=== PATIENT | female | born 1955 | race African-American/Black ===

== ENCOUNTER 2017-03-01 09:07 | Inpatient (IN) | payer MEDICARE, MEDICAID, OTHER ==
[2017-03-01] MEDS: CEFTRIAXONE 1 GM/50 ML (PMX) 50 ML IVPB (09:48)
[2017-03-01] MEDS: SODIUM CHLORIDE 0.9% 1L BAG IV* (09:49)
[2017-03-01] MEDS: IPRATROPIUM (NEB) 0.5 MG/2.5 ML AMP NEB (09:53)
[2017-03-01] MEDS: ALBUTEROL 0.5% (NEB) 2.5 MG/0.5 ML AMP NEB (09:53)
[2017-03-01] MEDS: AZITHROMYCIN 500MG/NS (PMX) 250 ML IV (10:04)
[2017-03-01 10:21] LABS: ABNORMAL IP MESSAGE 1; HEMATOCRIT 29.2 % (37.0-47.0); HEMOGLOBIN 8.4 g/dl (12.0-16.0); MEAN CORPUSCULAR HEMOGLOBIN 24.1 pg (29.0-33.0); MEAN CORPUSCULAR HGB CONC 28.8 g/dl (32.0-37.0); MEAN CORPUSCULAR VOLUME 83.9 fl (82.0-101.0); MEAN PLATELET VOLUME 11.5 fl (7.4-10.4); PLATELET COUNT 235 10^3/UL (140-415); RED BLOOD COUNT 3.48 10^6/ul (4.20-5.40); RED CELL DISTRIBUTION WIDTH 21.4 % (11.5-14.5)
[2017-03-01 10:21] LABS: WHITE BLOOD COUNT 13.4 10^3/ul (4.8-10.8)
[2017-03-01 10:29] LABS: ADD MAN DIFF? YES; POSITIVE DIFF @See below
[2017-03-01 10:34] LABS: INR 1.23; PROTIME 15.7 Sec (11.9-14.9); PT RATIO 1.2
[2017-03-01 10:36] LABS: PARTIAL THROMBOPLASTIN TIME 64.6 Sec (25.0-35.0)
[2017-03-01 10:50] LABS: ALANINE AMINOTRANSFERASE 30 IU/L (13-69); ALBUMIN 3.4 g/dl (3.3-4.9); ALBUMIN/GLOBULIN RATIO 1.17; ALKALINE PHOSPHATASE 65 IU/L (42-121); ANION GAP 19 (8-16); ASPARTATE AMINO TRANSFERASE 24 IU/L (15-46); BILIRUBIN,INDIRECT 0.6 mg/dl (0-1.1); BILIRUBIN,TOTAL 0.6 mg/dl (0.2-1.3); BLOOD UREA NITROGEN 22 mg/dl (7-20); CALCIUM 9.2 mg/dl (8.4-10.2); CARBON DIOXIDE 21 mmol/L (21-31); CHLORIDE 108 mmol/L (97-110); GLUCOSE 340 mg/dl (70-220); POTASSIUM 4.3 mmol/L (3.5-5.1); SODIUM 144 mmol/L (135-144); TOTAL PROTEIN 6.3 g/dl (6.1-8.1)
[2017-03-01 10:59] LABS: TROPONIN-I < 0.012 ng/ml (0.00-0.12)
[2017-03-01 11:08] LABS: LACTIC ACID 3.8 mmol/L (0.5-2.0)
[2017-03-01 11:22] LABS: BAND NEUTROPHILS #M 1.7 10^3/ul (0.0-0.6); BAND NEUTROPHILS % (M) 13 % (0-4); LYMPHOCYTES # 0.5 10^3/ul (0.8-2.9); LYMPHOCYTES #M 0.5 10^3/ul (0.8-2.9); LYMPHOCYTES % (M) 4 % (15-51); MONOCYTE # 0.5 10^3/ul (0.3-0.9); MONOCYTE #M 0.5 10^3/ul (0.3-0.9); MONOCYTES % (M) 4 % (0-11); SEG NEUT #M 10.8 10^3/ul (1.7-7.5); SEGMENTED NEUTROPHILS (M) % 79 % (39-77)
[2017-03-01] MEDS ORDERED: ONDANSETRON 4 MG INJ IV (12:00)
[2017-03-01] MEDS ORDERED: ACETAMINOPHEN 325 MG TAB PO ×2 (12:00→14:00)
[2017-03-01 12:43] LABS: LACTIC ACID 2.1 mmol/L (0.5-2.0)
[2017-03-01] MEDS ORDERED: NACL 0.9% 3 ML SYG IV (14:00)
[2017-03-01] MEDS ORDERED: VANCOMYCIN IV PER PHARMACY XX (14:00)
[2017-03-01] MEDS ORDERED: ALBUTEROL/IPRATROPIUM (NEB) 3 ML AMP HHN (14:00)
[2017-03-01] MEDS ORDERED: ACETAMINOPHEN 650 MG SUPP PR (14:00)
[2017-03-01] MEDS: NPH, HUMAN INSULIN ISOPHANE 3ML VIAL SC ×2 (14:30→22:33)
[2017-03-01] MEDS: SOD CHLORIDE 0.9% 1,000 ML IV ×2 (14:40→14:50)
[2017-03-01] MEDS ORDERED: GLUCOSE GEL 15 GRAM TUBE PO ×2 (15:00)
[2017-03-01] MEDS ORDERED: DEXTROSE 50% 50 ML SYRINGE IV ×2 (15:00)
[2017-03-01] MEDS ORDERED: GLUCAGON 1 MG INJ IM (15:00)
[2017-03-01] MEDS ORDERED: GLUCOSE GEL 15 GRAM TUBE BUCCAL (15:00)
[2017-03-01 15:54] LABS: AADO2 Arterial 598.6 mmHg (7.0-24.0); Allen Test ACCEPTAB; Arterial Blood Gas Oxygen Sat 95.9 mmHG (95.0-98.0); Arterial COHb 0.5 % (0.0-3.0); Arterial Fraction of Oxyhgb 95.1 % (93.0-99.0); Arterial MetHb 0.3 % (0.0-1.5); Arterial Total Hemglobin 8.9 g/dl (12.0-18.0); Arterial pCO2 34.1 mmhg (35-45); MODE MASK - NRB; Site Right Radial
[2017-03-01 16:00] LABS: ADD UMIC YES; UR ASCORBIC ACID 20 mg/dL (NEGATIVE); UR BILIRUBIN (Dip) NEGATIVE (NEGATIVE); UR BLOOD (Dip) NEGATIVE (NEGATIVE); UR CLARITY SLIGHTLY CLOUDY (CLEAR); UR COLOR YELLOW (YELLOW); UR GLUCOSE (Dip) 3+ mg/dL (NEGATIVE); UR KETONES (Dip) NEGATIVE (NEGATIVE); UR LEUKOCYTE ESTERASE (Dip) 1+ Leu/ul (NEGATIVE); UR NITRITE (Dip) POSITIVE (NEGATIVE); UR RBC 0 /HPF (0-5); UR SPECIFIC GRAVITY (Dip) 1.013 (1.003-1.030); UR TOTAL PROTEIN (Dip) NEGATIVE (NEGATIVE); UR UROBILINOGEN (Dip) NEGATIVE (NEGATIVE); UR WBC 56 /HPF (0-5)
[2017-03-01] MEDS: METHYLPREDNISOLONE 125 MG INJ IV (16:08)
[2017-03-01] MEDS: CEFEPIME 2GM/50 ML (PMX) 50 ML IVPB ×2 (16:08→22:50)
[2017-03-01] MEDS: VANCOMYCIN 1.25 GM in SODIUM CHLORIDE 0.45 % 250 ML IVPB (16:53)
[2017-03-01] MEDS ORDERED: INSULIN ASPART [NOVOLOG] 3 ML PEN SC (17:00)
[2017-03-01] MEDS: INSULIN ASPART [NOVOLOG] 3 ML PEN SC ×2 (17:00→21:21)
[2017-03-01] MEDS: INSULIN GLARGINE [LANtus] 3 ML PEN SC (17:31)
[2017-03-01 20:00] LABS: LACTIC ACID 1.5 mmol/L (0.5-2.0)
[2017-03-01] MEDS: ALBUTEROL/IPRATROPIUM (NEB) 3 ML AMP HHN (20:41)
[2017-03-01] MEDS: FAMOTIDINE 20 MG INJ IV (21:16)
[2017-03-01] MEDS: METHYLPREDNISOLONE 40 MG INJ IV (21:16)
[2017-03-01] MEDS: ATORVASTATIN 40 MG TAB PO (21:16)
[2017-03-01] MEDS: HEPARIN 5,000 UNIT/0.5 ML VIAL SC (21:21)
[2017-03-01] MEDS: ZIPRASIDONE 20 MG CAP PO (22:27)
[2017-03-02] MEDS: ALBUTEROL/IPRATROPIUM (NEB) 3 ML AMP HHN ×6 (00:18→20:18)
[2017-03-02] MEDS: INSULIN ASPART [NOVOLOG] 3 ML PEN SC ×6 (01:26→20:38)
[2017-03-02] MEDS: ACCU-CHEK XX (01:27)
[2017-03-02] MEDS: METHYLPREDNISOLONE 40 MG INJ IV ×2 (05:47→20:32)
[2017-03-02] MEDS: CEFEPIME 2GM/50 ML (PMX) 50 ML IVPB ×2 (05:48→20:33)
[2017-03-02] MEDS: NPH, HUMAN INSULIN ISOPHANE 3ML VIAL SC ×3 (05:51→21:59)
[2017-03-02] MEDS ORDERED: PENDING SANTYL ORDER FOR WOUND CARE XX (07:00)
[2017-03-02 07:05] LABS: WHITE BLOOD COUNT 9.3 10^3/ul (4.8-10.8)
[2017-03-02 07:05] LABS: ABNORMAL IP MESSAGE 1; HEMOGLOBIN 7.7 g/dl (12.0-16.0); MEAN CORPUSCULAR HEMOGLOBIN 23.6 pg (29.0-33.0); MEAN CORPUSCULAR HGB CONC 28.5 g/dl (32.0-37.0); MEAN CORPUSCULAR VOLUME 82.8 fl (82.0-101.0); MEAN PLATELET VOLUME 11.7 fl (7.4-10.4); PLATELET COUNT 175 10^3/UL (140-415); RED BLOOD COUNT 3.26 10^6/ul (4.20-5.40); RED CELL DISTRIBUTION WIDTH 21.4 % (11.5-14.5)
[2017-03-02 07:09] LABS: ADD MAN DIFF? YES; POSITIVE DIFF @See below
[2017-03-02 07:33] LABS: LACTIC ACID 1.2 mmol/L (0.5-2.0)
[2017-03-02 07:48] LABS: ALANINE AMINOTRANSFERASE 30 IU/L (13-69); ALBUMIN 3.1 g/dl (3.3-4.9); ALKALINE PHOSPHATASE 69 IU/L (42-121); ANION GAP 15 (8-16); ASPARTATE AMINO TRANSFERASE 20 IU/L (15-46); BILIRUBIN,INDIRECT 0.2 mg/dl (0-1.1); BILIRUBIN,TOTAL 0.2 mg/dl (0.2-1.3); BLOOD UREA NITROGEN 17 mg/dl (7-20); CALCIUM 9.1 mg/dl (8.4-10.2); CARBON DIOXIDE 24 mmol/L (21-31); CHLORIDE 113 mmol/L (97-110); CREATININE 0.79 mg/dl (0.44-1.00); GLUCOSE 250 mg/dl (70-220); MAGNESIUM 2.1 mg/dl (1.7-2.5); PHOSPHORUS 2.6 mg/dl (2.5-4.9); POTASSIUM 4.1 mmol/L (3.5-5.1); SODIUM 148 mmol/L (135-144); TOTAL PROTEIN 6.2 g/dl (6.1-8.1)
[2017-03-02] MEDS: AMLODIPINE 5 MG TAB PO (08:43)
[2017-03-02] MEDS: FAMOTIDINE 20 MG INJ IV ×2 (08:43→20:31)
[2017-03-02] MEDS: ZIPRASIDONE 20 MG CAP PO ×2 (08:43→20:31)
[2017-03-02] MEDS: HEPARIN 5,000 UNIT/0.5 ML VIAL SC ×2 (08:47→20:38)
[2017-03-02 10:04] LABS: ANISOCYTOSIS 1+ (0-0); BAND NEUTROPHILS #M 2.6 10^3/ul (0.0-0.6); BAND NEUTROPHILS % (M) 29 % (0-4); BURR CELLS 1+ (0-0); HYPOCHROMASIA 1+ (0-0); LYMPHOCYTES #M 0.7 10^3/ul (0.8-2.9); LYMPHOCYTES % (M) 8 % (15-51); MONOCYTE #M 0.2 10^3/ul (0.3-0.9); MONOCYTES % (M) 3 % (0-11); OVALOCYTES 1+ (0-0); PLATELET ESTIMATE NORMAL; POIKILOCYTOSIS 1+ (0-0); SEG NEUT #M 5.8 10^3/ul (1.7-7.5); SEGMENTED NEUTROPHILS (M) % 60 % (39-77); SMUDGE%M 2 % (0-0)
[2017-03-02] MEDS: VANCOMYCIN 500MG/NS (PMX) 100 ML IVPB ×2 (12:27→23:42)
[2017-03-02] MEDS: FENTAnyl PATCH 75 MCG/HR TRANSDERM (12:29)
[2017-03-02 14:15] LABS: CHOL/HDL RATIO 3.8 RATIO; HDL CHOLESTEROL 31 mg/dl (35-98); LDL CHOLESTEROL,CALCULATED 64 mg/dl; TRIGLYCERIDES 113 mg/dl (0-149)
[2017-03-02 14:15] LABS: CHOLESTEROL 118 mg/dl (100-200)
[2017-03-02 14:51] LABS: THYROID STIMULATING HORMONE 0.053 MIU/L (0.465-4.680)
[2017-03-02] MEDS: ATORVASTATIN 40 MG TAB PO (20:31)
[2017-03-02] MEDS: INSULIN GLARGINE [LANtus] 3 ML PEN SC (20:37)
[2017-03-03] MEDS: ALBUTEROL/IPRATROPIUM (NEB) 3 ML AMP HHN ×6 (00:07→19:32)
[2017-03-03] MEDS: ACCU-CHEK XX ×17 (02:04→23:01)
[2017-03-03 06:06] LABS: WHITE BLOOD COUNT 7.8 10^3/ul (4.8-10.8)
[2017-03-03 06:06] LABS: ABNORMAL IP MESSAGE 1; HEMATOCRIT 26.8 % (37.0-47.0); HEMOGLOBIN 8.1 g/dl (12.0-16.0); MEAN CORPUSCULAR HEMOGLOBIN 24.3 pg (29.0-33.0); MEAN CORPUSCULAR HGB CONC 30.2 g/dl (32.0-37.0); MEAN CORPUSCULAR VOLUME 80.5 fl (82.0-101.0); MEAN PLATELET VOLUME 11.3 fl (7.4-10.4); PLATELET COUNT 266 10^3/UL (140-415); RED BLOOD COUNT 3.33 10^6/ul (4.20-5.40); RED CELL DISTRIBUTION WIDTH 21.2 % (11.5-14.5)
[2017-03-03 06:16] LABS: ADD MAN DIFF? YES; POSITIVE DIFF @See below
[2017-03-03] MEDS: METHYLPREDNISOLONE 40 MG INJ IV (06:40)
[2017-03-03] MEDS: NPH, HUMAN INSULIN ISOPHANE 3ML VIAL SC (06:40)
[2017-03-03 07:10] LABS: ANION GAP 16 (8-16); BLOOD UREA NITROGEN 23 mg/dl (7-20); CALCIUM 9.1 mg/dl (8.4-10.2); CARBON DIOXIDE 20 mmol/L (21-31); CHLORIDE 112 mmol/L (97-110); CREATININE 0.87 mg/dl (0.44-1.00); GLUCOSE 305 mg/dl (70-220); MAGNESIUM 2.2 mg/dl (1.7-2.5); POTASSIUM 3.9 mmol/L (3.5-5.1); SODIUM 144 mmol/L (135-144)
[2017-03-03] MEDS: ONDANSETRON 4 MG INJ IV (08:35)
[2017-03-03] MEDS ORDERED: DEXTROSE 50% 50 ML SYRINGE IV ×2 (09:00)
[2017-03-03] MEDS ORDERED: INSULIN HUMAN REGULAR 100 UNIT in SOD CHLORIDE 0.9% 99 ML IV (09:00)
[2017-03-03 09:37] LABS: ANISOCYTOSIS 1+ (0-0); BAND NEUTROPHILS #M 0.5 10^3/ul (0.0-0.6); BAND NEUTROPHILS % (M) 7 % (0-4); BURR CELLS 1+ (0-0); GIANT THROMBO% (M) 2 % (0-0); LYMPHOCYTES #M 0.7 10^3/ul (0.8-2.9); LYMPHOCYTES % (M) 10 % (15-51); OVALOCYTES 1+ (0-0); PLATELET ESTIMATE NORMAL; POIKILOCYTOSIS 3+ (0-0); POLYCHROMASIA 1+ (0-0); SEG NEUT #M 6.5 10^3/ul (1.7-7.5); SEGMENTED NEUTROPHILS (M) % 83 % (39-77)
[2017-03-03] MEDS: HYDROCODONE/APAP (5/325) TAB PO ×2 (09:46→19:49)
[2017-03-03] MEDS: CEFEPIME 2GM/50 ML (PMX) 50 ML IVPB ×2 (09:46→20:51)
[2017-03-03] MEDS: AMLODIPINE 5 MG TAB PO (09:46)
[2017-03-03] MEDS: ZIPRASIDONE 20 MG CAP PO ×2 (09:46→21:09)
[2017-03-03] MEDS: DOCUSATE SODIUM 100 MG CAP PO ×2 (09:47→20:52)
[2017-03-03] MEDS: POLYETHYLENE GLYCOL 17 GM PACKET PO ×2 (09:47→10:07)
[2017-03-03 09:49] LABS: AADO2 Arterial 409.7 mmHg (7.0-24.0); Allen Test ACCEPTAB; Arterial Blood Gas Oxygen Sat 87.4 mmHG (95.0-98.0); Arterial COHb 0.2 % (0.0-3.0); Arterial Fraction of Oxyhgb 87.1 % (93.0-99.0); Arterial MetHb 0.2 % (0.0-1.5); Arterial Total Hemglobin 9.5 g/dl (12.0-18.0); Arterial pCO2 27.6 mmhg (35-45); MODE MASK - SIMPLE; Site Left Radial
[2017-03-03] MEDS: FAMOTIDINE 20 MG INJ IV ×2 (09:57→20:51)
[2017-03-03] MEDS: HEPARIN 5,000 UNIT/0.5 ML VIAL SC ×2 (10:00→20:54)
[2017-03-03] MEDS: INSULIN HUMAN REGULAR 100 UNIT in SOD CHLORIDE 0.9% 99 ML IV (11:48)
[2017-03-03 13:02] LABS: VANCOMYCIN,TROUGH 6.7 ug/ml (10.0-20.0)
[2017-03-03] MEDS: VANCOMYCIN 500MG/NS (PMX) 100 ML IVPB ×2 (13:23→20:52)
[2017-03-03] MEDS: COLLAGENASE 30 GM TUBE TOP (16:05)
[2017-03-03] MEDS: ATORVASTATIN 40 MG TAB PO (20:52)
[2017-03-03] MEDS ORDERED: METHYLPREDNISOLONE 40 MG INJ IV (21:00)
[2017-03-04] MEDS: ACCU-CHEK XX ×8 (00:44→08:00)
[2017-03-04] MEDS: HYDROCODONE/APAP (5/325) TAB PO ×4 (01:29→20:51)
[2017-03-04] MEDS: ALBUTEROL/IPRATROPIUM (NEB) 3 ML AMP HHN ×6 (04:47→20:09)
[2017-03-04] MEDS: VANCOMYCIN 500MG/NS (PMX) 100 ML IVPB ×3 (04:54→21:35)
[2017-03-04 05:59] LABS: WHITE BLOOD COUNT 9.2 10^3/ul (4.8-10.8)
[2017-03-04 05:59] LABS: HEMATOCRIT 27.6 % (37.0-47.0); HEMOGLOBIN 8.3 g/dl (12.0-16.0); MEAN CORPUSCULAR HGB CONC 30.1 g/dl (32.0-37.0); MEAN CORPUSCULAR VOLUME 79.8 fl (82.0-101.0); MEAN PLATELET VOLUME 11.7 fl (7.4-10.4); PLATELET COUNT 273 10^3/UL (140-415); RED BLOOD COUNT 3.46 10^6/ul (4.20-5.40)
[2017-03-04 06:21] LABS: IRON 19 ug/dl (35-150)
[2017-03-04 06:25] LABS: ANION GAP 12 (8-16); BLOOD UREA NITROGEN 24 mg/dl (7-20); CALCIUM 9.4 mg/dl (8.4-10.2); CARBON DIOXIDE 22 mmol/L (21-31); CHLORIDE 112 mmol/L (97-110); CREATININE 0.87 mg/dl (0.44-1.00); GLUCOSE 106 mg/dl (70-220); POTASSIUM 3.7 mmol/L (3.5-5.1); SODIUM 142 mmol/L (135-144)
[2017-03-04 06:31] LABS: ADD MAN DIFF? YES; POSITIVE DIFF @See below
[2017-03-04 06:32] LABS: % IRON SATURATION 8 % SAT (22-52); TOTAL IRON BINDING CAPACITY 250 ug/dl (241-421)
[2017-03-04 06:59] LABS: FERRITIN 73.6 ng/ml (11.1-264.0)
[2017-03-04 08:32] LABS: AADO2 Arterial 269.3 mmHg (7.0-24.0); Allen Test ACCEPTAB; Arterial Base Excess -3.8 mmol/L (-3.0-3); Arterial Blood Gas Oxygen Sat 86.8 mmHG (95.0-98.0); Arterial COHb 0.2 % (0.0-3.0); Arterial Fraction of Oxyhgb 86.4 % (93.0-99.0); Arterial HCO3 19.5 mmol/L (22.0-26.0); Arterial MetHb 0.3 % (0.0-1.5); Arterial Total Hemglobin 8.8 g/dl (12.0-18.0); Arterial pCO2 28.7 mmhg (35-45); MODE HFNC; Site Left Radial
[2017-03-04] MEDS ORDERED: METHYLPREDNISOLONE 40 MG INJ IV (09:00)
[2017-03-04] MEDS ORDERED: ACCU-CHEK XX (09:00)
[2017-03-04] MEDS: ZIPRASIDONE 20 MG CAP PO ×2 (09:22→20:50)
[2017-03-04] MEDS: FAMOTIDINE 20 MG INJ IV ×2 (09:22→20:50)
[2017-03-04] MEDS: CEFEPIME 2GM/50 ML (PMX) 50 ML IVPB ×2 (09:22→20:52)
[2017-03-04] MEDS: AMLODIPINE 5 MG TAB PO (09:23)
[2017-03-04] MEDS: DOCUSATE SODIUM 100 MG CAP PO ×2 (09:23→20:51)
[2017-03-04] MEDS: predniSONE 20 MG TAB PO (09:23)
[2017-03-04] MEDS: COLLAGENASE 30 GM TUBE TOP (09:23)
[2017-03-04] MEDS ORDERED: GLUCOSE GEL 15 GRAM TUBE BUCCAL (09:30)
[2017-03-04] MEDS: INSULIN GLARGINE [LANtus] 3 ML PEN SC (09:30)
[2017-03-04] MEDS ORDERED: GLUCAGON 1 MG INJ IM (09:30)
[2017-03-04] MEDS ORDERED: GLUCOSE GEL 15 GRAM TUBE PO ×2 (09:30)
[2017-03-04] MEDS ORDERED: DEXTROSE 50% 50 ML SYRINGE IV ×2 (09:30)
[2017-03-04] MEDS: HEPARIN 5,000 UNIT/0.5 ML VIAL SC ×2 (09:39→20:54)
[2017-03-04 11:29] LABS: ANISOCYTOSIS 2+ (0-0); BAND NEUTROPHILS #M 0.4 10^3/ul (0.0-0.6); BAND NEUTROPHILS % (M) 5 % (0-4); HYPOCHROMASIA 3+ (0-0); LYMPHOCYTES #M 0.9 10^3/ul (0.8-2.9); LYMPHOCYTES % (M) 10 % (15-51); MICROCYTOSIS 1+ (0-0); MONOCYTE #M 0.5 10^3/ul (0.3-0.9); MONOCYTES % (M) 6 % (0-11); PLATELET ESTIMATE NORMAL; POIKILOCYTOSIS 2+ (0-0); POLYCHROMASIA 1+ (0-0); REACTIVE LYMPHOCYTES #M 0.1 10^3/ul (0.0-0.0); REACTIVE LYMPHOCYTES% (M) 2 % (0-0); SEG NEUT #M 7.1 10^3/ul (1.7-7.5); SEGMENTED NEUTROPHILS (M) % 77 % (39-77)
[2017-03-04] MEDS ORDERED: ROPINIROLE 0.25 MG TAB PO (11:30)
[2017-03-04] MEDS: INSULIN ASPART [NOVOLOG] 3 ML PEN SC ×5 (11:30→20:59)
[2017-03-04] MEDS: FERROUS FUMARATE (SR) TAB PO (12:19)
[2017-03-04] MEDS: ROPINIROLE 0.25 MG TAB PO ×2 (12:28→20:51)
[2017-03-04 20:35] LABS: VANCOMYCIN,TROUGH 11.2 ug/ml (10.0-20.0)
[2017-03-04] MEDS: ATORVASTATIN 40 MG TAB PO (20:51)
[2017-03-05] MEDS: ACCU-CHEK XX (02:40)
[2017-03-05] MEDS: VANCOMYCIN 750 MG in DEXTROSE 5% 150 ML IVPB ×3 (03:16→18:08)
[2017-03-05] MEDS: HYDROCODONE/APAP (5/325) TAB PO (03:31)
[2017-03-05] MEDS: ALBUTEROL/IPRATROPIUM (NEB) 3 ML AMP HHN ×6 (04:09→20:12)
[2017-03-05 05:35] LABS: WHITE BLOOD COUNT 7.5 10^3/ul (4.8-10.8)
[2017-03-05 05:35] LABS: HEMATOCRIT 28.9 % (37.0-47.0); HEMOGLOBIN 8.7 g/dl (12.0-16.0); MEAN CORPUSCULAR HEMOGLOBIN 24.2 pg (29.0-33.0); MEAN CORPUSCULAR HGB CONC 30.1 g/dl (32.0-37.0); MEAN CORPUSCULAR VOLUME 80.5 fl (82.0-101.0); MEAN PLATELET VOLUME 11.1 fl (7.4-10.4); NUCLEATED RED BLOOD CELLS% 0.3 /100WBC (0.0-0.0); PLATELET COUNT 304 10^3/UL (140-415); RED BLOOD COUNT 3.59 10^6/ul (4.20-5.40); RED CELL DISTRIBUTION WIDTH 20.3 % (11.5-14.5)
[2017-03-05 05:56] LABS: ADD MAN DIFF? YES; POSITIVE DIFF @See below
[2017-03-05 06:27] LABS: ANION GAP 12 (8-16); BLOOD UREA NITROGEN 14 mg/dl (7-20); CALCIUM 8.9 mg/dl (8.4-10.2); CARBON DIOXIDE 24 mmol/L (21-31); CHLORIDE 108 mmol/L (97-110); CREATININE 0.74 mg/dl (0.44-1.00); GLUCOSE 135 mg/dl (70-220); POTASSIUM 3.3 mmol/L (3.5-5.1); SODIUM 141 mmol/L (135-144)
[2017-03-05 08:27] LABS: AADO2 Arterial 367.9 mmHg (7.0-24.0); Allen Test ACCEPTAB; Arterial Base Excess -1.4 mmol/L (-3.0-3); Arterial Blood Gas Oxygen Sat 97.6 mmHG (95.0-98.0); Arterial COHb 0.4 % (0.0-3.0); Arterial HCO3 21.7 mmol/L (22.0-26.0); Arterial MetHb 0.2 % (0.0-1.5); Arterial Total Hemglobin 10.8 g/dl (12.0-18.0); Arterial pCO2 30.8 mmhg (35-45); MODE HFNC; Site Left Radial
[2017-03-05] MEDS: CEFEPIME 2GM/50 ML (PMX) 50 ML IVPB ×2 (08:29→21:19)
[2017-03-05] MEDS: DOCUSATE SODIUM 100 MG CAP PO ×2 (08:30→21:10)
[2017-03-05] MEDS: predniSONE 20 MG TAB PO (08:30)
[2017-03-05] MEDS: AMLODIPINE 5 MG TAB PO (08:30)
[2017-03-05] MEDS: ZIPRASIDONE 20 MG CAP PO ×2 (08:30→21:00)
[2017-03-05] MEDS: FAMOTIDINE 20 MG INJ IV ×2 (08:30→21:11)
[2017-03-05] MEDS: POLYETHYLENE GLYCOL 17 GM PACKET PO (08:30)
[2017-03-05] MEDS: FERROUS FUMARATE (SR) TAB PO (08:31)
[2017-03-05] MEDS: COLLAGENASE 30 GM TUBE TOP (08:31)
[2017-03-05] MEDS: INSULIN GLARGINE [LANtus] 3 ML PEN SC (08:34)
[2017-03-05] MEDS: HEPARIN 5,000 UNIT/0.5 ML VIAL SC ×2 (08:34→21:12)
[2017-03-05] MEDS: INSULIN ASPART [NOVOLOG] 3 ML PEN SC ×7 (08:35→21:00)
[2017-03-05] MEDS: POTASSIUM CHLORIDE (SR) 20 MEQ TAB PO (08:58)
[2017-03-05] MEDS: morphine 2 MG INJ IV ×2 (08:58→23:48)
[2017-03-05 09:58] LABS: ANISOCYTOSIS 1+ (0-0); BAND NEUTROPHILS % (M) 1 % (0-4); EOSINOPHILS % (M) 2 % (0-7); ERYTHROBLAST% (NRBC) (M) 1 % (0-0); HYPOCHROMASIA 1+ (0-0); LYMPHOCYTES #M 1.1 10^3/ul (0.8-2.9); LYMPHOCYTES % (M) 15 % (15-51); METAMYELOCYTES %M 1 % (0-0); MICROCYTOSIS 1+ (0-0); MONOCYTE #M 0.6 10^3/ul (0.3-0.9); MONOCYTES % (M) 8 % (0-11); MYELOCYTES % (M) 1 % (0-0); OVALOCYTES 1+ (0-0); PLATELET ESTIMATE NORMAL; POIKILOCYTOSIS 2+ (0-0); POLYCHROMASIA 1+ (0-0); SEG NEUT #M 5.4 10^3/ul (1.7-7.5); SEGMENTED NEUTROPHILS (M) % 72 % (39-77); SMUDGE%M 3 % (0-0)
[2017-03-05] MEDS: FENTAnyl PATCH 75 MCG/HR TRANSDERM (10:06)
[2017-03-05] MEDS: ROPINIROLE 0.25 MG TAB PO (21:10)
[2017-03-05] MEDS: ATORVASTATIN 40 MG TAB PO (21:10)
[2017-03-06] MEDS: ALBUTEROL/IPRATROPIUM (NEB) 3 ML AMP HHN ×6 (00:28→20:04)
[2017-03-06] MEDS: ZIPRASIDONE 20 MG CAP PO ×2 (00:55→21:04)
[2017-03-06] MEDS: HYDROCODONE/APAP (5/325) TAB PO ×4 (01:29→19:48)
[2017-03-06] MEDS: ACCU-CHEK XX ×2 (02:00→23:31)
[2017-03-06 03:31] LABS: VANCOMYCIN,TROUGH 17.5 ug/ml (10.0-20.0)
[2017-03-06] MEDS: VANCOMYCIN 750 MG in DEXTROSE 5% 150 ML IVPB ×2 (03:49→11:13)
[2017-03-06 05:30] LABS: ADD MAN DIFF? NO
[2017-03-06 05:44] LABS: WHITE BLOOD COUNT 10.1 10^3/ul (4.8-10.8)
[2017-03-06 05:44] LABS: BASOPHILS % 0.1 % (0.0-2.0); EOSINOPHILS # 0.3 10^3/ul (0.0-0.5); HEMATOCRIT 29.4 % (37.0-47.0); HEMOGLOBIN 8.7 g/dl (12.0-16.0); LYMPHOCYTES # 1.3 10^3/ul (0.8-2.9); LYMPHOCYTES % 12.5 % (15.0-51.0); MEAN CORPUSCULAR HEMOGLOBIN 23.7 pg (29.0-33.0); MEAN CORPUSCULAR HGB CONC 29.6 g/dl (32.0-37.0); MEAN CORPUSCULAR VOLUME 80.1 fl (82.0-101.0); MEAN PLATELET VOLUME 11.1 fl (7.4-10.4); MONOCYTE # 0.9 10^3/ul (0.3-0.9); MONOCYTES % 8.9 % (0.0-11.0); NEUTROPHIL # 7.4 10^3/ul (1.6-7.5); NEUTROPHILS % 73.4 % (39.0-77.0); PLATELET COUNT 305 10^3/UL (140-415); RED BLOOD COUNT 3.67 10^6/ul (4.20-5.40)
[2017-03-06 06:20] LABS: ANION GAP 15 (8-16); BLOOD UREA NITROGEN 15 mg/dl (7-20); CALCIUM 8.8 mg/dl (8.4-10.2); CARBON DIOXIDE 24 mmol/L (21-31); CHLORIDE 101 mmol/L (97-110); GLUCOSE 278 mg/dl (70-220); POTASSIUM 3.5 mmol/L (3.5-5.1); SODIUM 136 mmol/L (135-144)
[2017-03-06] MEDS: INSULIN ASPART [NOVOLOG] 3 ML PEN SC ×7 (07:35→21:00)
[2017-03-06] MEDS: morphine 2 MG INJ IV ×3 (08:12→19:49)
[2017-03-06] MEDS: MONTELUKAST 10 MG TAB PO ×2 (08:33→22:01)
[2017-03-06] MEDS: SALMETEROL/FLUTICASONE 250/50 INHA INH ×2 (08:50→21:05)
[2017-03-06] MEDS: AMLODIPINE 2.5 MG TAB PO (08:51)
[2017-03-06] MEDS: DOCUSATE SODIUM 100 MG CAP PO ×2 (08:51→20:02)
[2017-03-06] MEDS: predniSONE 20 MG TAB PO (08:53)
[2017-03-06] MEDS: VALACYCLOVIR 500 MG TAB PO ×2 (08:53→20:02)
[2017-03-06] MEDS: LISINOPRIL 20 MG TAB PO (08:54)
[2017-03-06] MEDS: ASCORBIC ACID 500 MG TAB PO (08:55)
[2017-03-06] MEDS: COLLAGENASE 30 GM TUBE TOP (08:56)
[2017-03-06] MEDS: CEFEPIME 2GM/50 ML (PMX) 50 ML IVPB ×2 (09:01→21:05)
[2017-03-06] MEDS: POLYETHYLENE GLYCOL 17 GM PACKET PO (09:02)
[2017-03-06] MEDS: FAMOTIDINE 20 MG TAB PO ×2 (09:02→20:02)
[2017-03-06] MEDS: HEPARIN 5,000 UNIT/0.5 ML VIAL SC ×2 (09:03→20:03)
[2017-03-06] MEDS: INSULIN GLARGINE [LANtus] 3 ML PEN SC (09:04)
[2017-03-06 09:42] LABS: FREE T3 2.59 pg/ml (2.77-5.27)
[2017-03-06 09:43] LABS: FREE T4 (FREE THYROXINE) 1.28 ng/dl (0.78-2.44)
[2017-03-06] MEDS: FERROUS FUMARATE (SR) TAB PO (09:43)
[2017-03-06 09:57] LABS: HEPATITIS B SURFACE ANTIGEN NEGATIVE (NEGATIVE)
[2017-03-06] MEDS: SOD FERRIC GLUC COMPLX 125 MG in SOD CHLORIDE 0.9% 100 ML IVPB (10:13)
[2017-03-06 10:21] LABS: HEPATITIS C VIRAL ANTIBODY REACTIVE (NEGATIVE)
[2017-03-06 15:01] LABS: AADO2 Arterial 175.5 mmHg (7.0-24.0); Allen Test ACCEPTAB; Arterial Blood Gas Oxygen Sat 92.2 mmHG (95.0-98.0); Arterial COHb 0.2 % (0.0-3.0); Arterial Fraction of Oxyhgb 91.8 % (93.0-99.0); Arterial HCO3 21.5 mmol/L (22.0-26.0); Arterial MetHb 0.2 % (0.0-1.5); Arterial Total Hemglobin 10.6 g/dl (12.0-18.0); Arterial pCO2 32.6 mmhg (35-45); MODE NASAL CANNULA; Site Left Radial
[2017-03-06] MEDS: ATORVASTATIN 40 MG TAB PO (20:02)
[2017-03-06] MEDS: ROPINIROLE 0.25 MG TAB PO (21:05)
[2017-03-06] MEDS: VANCOMYCIN 1 GM 250 ML IVPB (21:58)
[2017-03-06] MEDS ORDERED: VANCOMYCIN 1 GM in SODIUM CHLORIDE 0.45 % 250 ML IVPB (22:00)
[2017-03-07] MEDS: ALBUTEROL/IPRATROPIUM (NEB) 3 ML AMP HHN ×6 (00:32→20:15)
[2017-03-07] MEDS: HYDROCODONE/APAP (5/325) TAB PO ×3 (05:15→15:41)
[2017-03-07] MEDS: morphine 2 MG INJ IV ×5 (05:15→23:29)
[2017-03-07 05:33] LABS: ADD MAN DIFF? NO
[2017-03-07 05:38] LABS: BASOPHILS % 0.1 % (0.0-2.0); EOSINOPHILS # 0.5 10^3/ul (0.0-0.5); EOSINOPHILS % 6.7 % (0.0-7.0); HEMATOCRIT 28.1 % (37.0-47.0); HEMOGLOBIN 8.3 g/dl (12.0-16.0); LYMPHOCYTES # 1.4 10^3/ul (0.8-2.9); LYMPHOCYTES % 17.5 % (15.0-51.0); MEAN CORPUSCULAR HEMOGLOBIN 23.6 pg (29.0-33.0); MEAN CORPUSCULAR HGB CONC 29.5 g/dl (32.0-37.0); MEAN CORPUSCULAR VOLUME 79.8 fl (82.0-101.0); MEAN PLATELET VOLUME 10.8 fl (7.4-10.4); MONOCYTE # 0.9 10^3/ul (0.3-0.9); MONOCYTES % 11.2 % (0.0-11.0); NEUTROPHIL # 4.7 10^3/ul (1.6-7.5); NEUTROPHILS % 59.5 % (39.0-77.0); NUCLEATED RED BLOOD CELLS% 0.3 /100WBC (0.0-0.0); PLATELET COUNT 325 10^3/UL (140-415); RED BLOOD COUNT 3.52 10^6/ul (4.20-5.40); RED CELL DISTRIBUTION WIDTH 21.2 % (11.5-14.5)
[2017-03-07 06:19] LABS: ALANINE AMINOTRANSFERASE 42 IU/L (13-69); ALBUMIN 3.1 g/dl (3.3-4.9); ALBUMIN/GLOBULIN RATIO 1.14; ALKALINE PHOSPHATASE 59 IU/L (42-121); ANION GAP 14 (8-16); ASPARTATE AMINO TRANSFERASE 24 IU/L (15-46); BILIRUBIN,INDIRECT 0.1 mg/dl (0-1.1); BILIRUBIN,TOTAL 0.1 mg/dl (0.2-1.3); BLOOD UREA NITROGEN 12 mg/dl (7-20); CALCIUM 8.9 mg/dl (8.4-10.2); CARBON DIOXIDE 21 mmol/L (21-31); CHLORIDE 111 mmol/L (97-110); CREATININE 0.77 mg/dl (0.44-1.00); GLUCOSE 113 mg/dl (70-220); POTASSIUM 3.1 mmol/L (3.5-5.1); SODIUM 143 mmol/L (135-144); TOTAL PROTEIN 5.8 g/dl (6.1-8.1)
[2017-03-07 07:25] LABS: ERYTHROCYTE SEDIMENTATION RATE 27 mm/Hr (0-30)
[2017-03-07] MEDS: INSULIN ASPART [NOVOLOG] 3 ML PEN SC ×7 (07:35→21:55)
[2017-03-07 07:56] LABS: MAGNESIUM 1.6 mg/dl (1.7-2.5)
[2017-03-07] MEDS: INSULIN GLARGINE [LANtus] 3 ML PEN SC (08:18)
[2017-03-07] MEDS ORDERED: POTASSIUM CHLORIDE (SR) 20 MEQ TAB PO (09:00)
[2017-03-07] MEDS: AMLODIPINE 2.5 MG TAB PO (09:00)
[2017-03-07] MEDS: POLYETHYLENE GLYCOL 17 GM PACKET PO (09:18)
[2017-03-07] MEDS: DOCUSATE SODIUM 100 MG CAP PO ×2 (09:20→21:47)
[2017-03-07] MEDS: ZIPRASIDONE 20 MG CAP PO ×2 (09:20→21:46)
[2017-03-07] MEDS: predniSONE 20 MG TAB PO (09:20)
[2017-03-07] MEDS: VALACYCLOVIR 500 MG TAB PO ×2 (09:20→21:47)
[2017-03-07] MEDS: ASCORBIC ACID 500 MG TAB PO (09:20)
[2017-03-07] MEDS: POTASSIUM CHLORIDE (SR) 20 MEQ TAB PO ×2 (09:21→21:48)
[2017-03-07] MEDS: ROPINIROLE 0.25 MG TAB PO ×2 (09:21→21:47)
[2017-03-07] MEDS: FAMOTIDINE 20 MG TAB PO ×2 (09:21→21:48)
[2017-03-07] MEDS: LISINOPRIL 20 MG TAB PO (09:22)
[2017-03-07] MEDS: SALMETEROL/FLUTICASONE 250/50 INHA INH ×2 (09:23→21:45)
[2017-03-07] MEDS: HEPARIN 5,000 UNIT/0.5 ML VIAL SC ×2 (09:26→21:54)
[2017-03-07] MEDS: COLLAGENASE 30 GM TUBE TOP (09:27)
[2017-03-07] MEDS: CEFEPIME 2GM/50 ML (PMX) 50 ML IVPB ×2 (09:35→23:29)
[2017-03-07] MEDS: FERROUS FUMARATE (SR) TAB PO (09:35)
[2017-03-07] MEDS: POTASSIUM CHLORIDE 50 ML IVPB ×2 (09:36→10:26)
[2017-03-07] MEDS: MAGNESIUM SULFATE 4 GM/100 ML 100 ML IVPB (09:36)
[2017-03-07] MEDS: SOD FERRIC GLUC COMPLX 125 MG in SOD CHLORIDE 0.9% 100 ML IVPB (10:28)
[2017-03-07] MEDS: VANCOMYCIN 1 GM 250 ML IVPB (10:31)
[2017-03-07] MEDS ORDERED: LIDOCAINE 1% (MDV) 20 ML INJ SC (14:00)
[2017-03-07] MEDS: ATORVASTATIN 40 MG TAB PO (21:47)
[2017-03-07] MEDS: MONTELUKAST 10 MG TAB PO (21:48)
[2017-03-08] MEDS: ALBUTEROL/IPRATROPIUM (NEB) 3 ML AMP HHN ×6 (00:34→20:48)
[2017-03-08] MEDS: VANCOMYCIN 1 GM 250 ML IVPB ×2 (01:06→12:05)
[2017-03-08] MEDS: ACCU-CHEK XX (02:19)
[2017-03-08] MEDS: INSULIN ASPART [NOVOLOG] 3 ML PEN SC ×9 (04:30→21:56)
[2017-03-08] MEDS: morphine 2 MG INJ IV ×4 (04:59→17:28)
[2017-03-08 05:54] LABS: WHITE BLOOD COUNT 9.1 10^3/ul (4.8-10.8)
[2017-03-08 05:54] LABS: ABNORMAL IP MESSAGE 1; HEMATOCRIT 29.6 % (37.0-47.0); HEMOGLOBIN 8.8 g/dl (12.0-16.0); MEAN CORPUSCULAR HGB CONC 29.7 g/dl (32.0-37.0); MEAN CORPUSCULAR VOLUME 80.9 fl (82.0-101.0); MEAN PLATELET VOLUME 10.9 fl (7.4-10.4); NUCLEATED RED BLOOD CELLS% 0.3 /100WBC (0.0-0.0); PLATELET COUNT 371 10^3/UL (140-415); RED BLOOD COUNT 3.66 10^6/ul (4.20-5.40); RED CELL DISTRIBUTION WIDTH 21.9 % (11.5-14.5)
[2017-03-08 05:56] LABS: ADD MAN DIFF? YES; POSITIVE DIFF @See below
[2017-03-08 06:05] LABS: AADO2 Arterial 98.1 mmHg (7.0-24.0); Allen Test ACCEPTAB; Arterial Base Excess -2.8 mmol/L (-3.0-3); Arterial Blood Gas Oxygen Sat 91.9 mmHG (95.0-98.0); Arterial COHb 0.3 % (0.0-3.0); Arterial Fraction of Oxyhgb 91.4 % (93.0-99.0); Arterial MetHb 0.2 % (0.0-1.5); Arterial Total Hemglobin 10.1 g/dl (12.0-18.0); Arterial pCO2 28.3 mmhg (35-45); MODE NASAL CANNULA; Site Right Radial
[2017-03-08 06:08] LABS: MAGNESIUM 2.1 mg/dl (1.7-2.5)
[2017-03-08 06:24] LABS: ANION GAP 15 (8-16); BLOOD UREA NITROGEN 14 mg/dl (7-20); CALCIUM 9.5 mg/dl (8.4-10.2); CARBON DIOXIDE 21 mmol/L (21-31); CHLORIDE 111 mmol/L (97-110); CREATININE 0.96 mg/dl (0.44-1.00); GLUCOSE 230 mg/dl (70-220); POTASSIUM 4.5 mmol/L (3.5-5.1); SODIUM 142 mmol/L (135-144)
[2017-03-08] MEDS: HYDROCODONE/APAP (5/325) TAB PO ×3 (08:15→16:07)
[2017-03-08] MEDS: CEFEPIME 2GM/50 ML (PMX) 50 ML IVPB (09:06)
[2017-03-08] MEDS: SALMETEROL/FLUTICASONE 250/50 INHA INH ×2 (09:10→21:25)
[2017-03-08] MEDS: ZIPRASIDONE 20 MG CAP PO ×2 (09:10→21:26)
[2017-03-08] MEDS: ASCORBIC ACID 500 MG TAB PO (09:11)
[2017-03-08] MEDS: FERROUS FUMARATE (SR) TAB PO (09:11)
[2017-03-08] MEDS: FAMOTIDINE 20 MG TAB PO ×2 (09:12→21:27)
[2017-03-08] MEDS: POLYETHYLENE GLYCOL 17 GM PACKET PO (09:12)
[2017-03-08] MEDS: POTASSIUM CHLORIDE (SR) 20 MEQ TAB PO ×2 (09:12→21:27)
[2017-03-08] MEDS: LISINOPRIL 20 MG TAB PO (09:13)
[2017-03-08] MEDS: predniSONE 20 MG TAB PO (09:13)
[2017-03-08] MEDS: AMLODIPINE 2.5 MG TAB PO (09:13)
[2017-03-08] MEDS: DOCUSATE SODIUM 100 MG CAP PO ×2 (09:13→21:25)
[2017-03-08 09:14] LABS: ANISOCYTOSIS 1+ (0-0); BAND NEUTROPHILS % (M) 1 % (0-4); BASOPHILS % (M) 1 % (0-2); EOSINOPHILS % (M) 3 % (0-7); ERYTHROBLAST% (NRBC) (M) 1 % (0-0); HYPOCHROMASIA 1+ (0-0); LYMPHOCYTES #M 2.5 10^3/ul (0.8-2.9); LYMPHOCYTES % (M) 28 % (15-51); MICROCYTOSIS 1+ (0-0); MONOCYTE #M 1.1 10^3/ul (0.3-0.9); MONOCYTES % (M) 13 % (0-11); PLATELET ESTIMATE NORMAL; POIKILOCYTOSIS 2+ (0-0); POLYCHROMASIA 1+ (0-0); REACTIVE LYMPHOCYTES% (M) 1 % (0-0); SEG NEUT #M 4.8 10^3/ul (1.7-7.5); SEGMENTED NEUTROPHILS (M) % 53 % (39-77); SMUDGE%M 1 % (0-0)
[2017-03-08] MEDS: SOD FERRIC GLUC COMPLX 125 MG in SOD CHLORIDE 0.9% 100 ML IVPB (09:14)
[2017-03-08] MEDS: COLLAGENASE 30 GM TUBE TOP (09:14)
[2017-03-08] MEDS: HEPARIN 5,000 UNIT/0.5 ML VIAL SC ×2 (09:18→21:43)
[2017-03-08] MEDS: INSULIN GLARGINE [LANtus] 3 ML PEN SC (09:43)
[2017-03-08] MEDS ORDERED: LEVOFLOXACIN 500 MG TAB NGT (15:30)
[2017-03-08] MEDS: HEPARIN (100 UNITS/ML) 5 ML SYG CATHETER (17:00)
[2017-03-08] MEDS: ATORVASTATIN 40 MG TAB PO (21:26)
[2017-03-08] MEDS: ROPINIROLE 0.25 MG TAB PO (21:27)
[2017-03-08] MEDS: MONTELUKAST 10 MG TAB PO (21:27)
[2017-03-09] MEDS ORDERED: VANCOMYCIN 1 GM 250 ML IVPB
[2017-03-09] MEDS: HYDROCODONE/APAP (5/325) TAB PO ×2 (00:01→05:45)
[2017-03-09] MEDS: ALBUTEROL/IPRATROPIUM (NEB) 3 ML AMP HHN ×6 (01:34→21:08)
[2017-03-09] MEDS: ACCU-CHEK XX (01:48)
[2017-03-09] MEDS: LEVOFLOXACIN 500 MG TAB PO (05:44)
[2017-03-09 06:20] LABS: ADD MAN DIFF? NO
[2017-03-09 06:26] LABS: ABNORMAL IP MESSAGE 1; BASOPHILS % 0.3 % (0.0-2.0); EOSINOPHILS # 0.7 10^3/ul (0.0-0.5); EOSINOPHILS % 5.9 % (0.0-7.0); HEMOGLOBIN 8.6 g/dl (12.0-16.0); LYMPHOCYTES # 1.8 10^3/ul (0.8-2.9); MEAN CORPUSCULAR HEMOGLOBIN 23.9 pg (29.0-33.0); MEAN CORPUSCULAR HGB CONC 28.7 g/dl (32.0-37.0); MEAN CORPUSCULAR VOLUME 83.3 fl (82.0-101.0); MEAN PLATELET VOLUME 11.1 fl (7.4-10.4); MONOCYTES % 9.1 % (0.0-11.0); NEUTROPHIL # 6.9 10^3/ul (1.6-7.5); NEUTROPHILS % 61.1 % (39.0-77.0); NUCLEATED RED BLOOD CELLS% 0.3 /100WBC (0.0-0.0); PLATELET COUNT 410 10^3/UL (140-415)
[2017-03-09 06:26] LABS: WHITE BLOOD COUNT 11.3 10^3/ul (4.8-10.8)
[2017-03-09 06:32] LABS: POSITIVE DIFF @See below
[2017-03-09 07:20] LABS: ANION GAP 18 (8-16); BLOOD UREA NITROGEN 13 mg/dl (7-20); CALCIUM 9.5 mg/dl (8.4-10.2); CARBON DIOXIDE 23 mmol/L (21-31); CHLORIDE 106 mmol/L (97-110); CREATININE 0.77 mg/dl (0.44-1.00); GLUCOSE 135 mg/dl (70-220); MAGNESIUM 1.7 mg/dl (1.7-2.5); PHOSPHORUS 4.2 mg/dl (2.5-4.9); POTASSIUM 5.3 mmol/L (3.5-5.1); SODIUM 142 mmol/L (135-144)
[2017-03-09] MEDS: AMLODIPINE 2.5 MG TAB PO (09:00)
[2017-03-09] MEDS: INSULIN GLARGINE [LANtus] 3 ML PEN SC (09:28)
[2017-03-09] MEDS: morphine 2 MG INJ IV ×4 (09:30→22:09)
[2017-03-09] MEDS: ZIPRASIDONE 20 MG CAP PO ×2 (09:33→22:05)
[2017-03-09] MEDS: FERROUS FUMARATE (SR) TAB PO (09:33)
[2017-03-09] MEDS: FAMOTIDINE 20 MG TAB PO ×2 (09:34→22:05)
[2017-03-09] MEDS: ASCORBIC ACID 500 MG TAB PO (09:34)
[2017-03-09] MEDS: predniSONE 20 MG TAB PO (09:35)
[2017-03-09] MEDS: SALMETEROL/FLUTICASONE 250/50 INHA INH ×2 (09:36→22:06)
[2017-03-09] MEDS: DOCUSATE SODIUM 100 MG CAP PO ×2 (09:36→22:05)
[2017-03-09] MEDS: POLYETHYLENE GLYCOL 17 GM PACKET PO (09:37)
[2017-03-09] MEDS: COLLAGENASE 30 GM TUBE TOP (09:38)
[2017-03-09] MEDS: HEPARIN 5,000 UNIT/0.5 ML VIAL SC ×2 (09:41→22:07)
[2017-03-09] MEDS: NA POLYST SULFON 15 GM/60 ML BTL PO (09:44)
[2017-03-09] MEDS: INSULIN ASPART [NOVOLOG] 3 ML PEN SC ×7 (09:45→21:00)
[2017-03-09] MEDS: MONTELUKAST 10 MG TAB PO (22:04)
[2017-03-09] MEDS: ROPINIROLE 0.25 MG TAB PO (22:05)
[2017-03-09] MEDS: ATORVASTATIN 40 MG TAB PO (22:05)
[2017-03-10] MEDS: ZOLPIDEM 5 MG TAB PO (01:23)
[2017-03-10] MEDS: ACCU-CHEK XX (02:00)
[2017-03-10] MEDS: ALBUTEROL/IPRATROPIUM (NEB) 3 ML AMP HHN ×4 (02:01→13:15)
[2017-03-10] MEDS: morphine 2 MG INJ IV ×2 (04:14→08:44)
[2017-03-10] MEDS: LEVOFLOXACIN 500 MG TAB PO (05:41)
[2017-03-10] MEDS: INSULIN ASPART [NOVOLOG] 3 ML PEN SC ×4 (07:50→12:35)
[2017-03-10] MEDS: FERROUS FUMARATE (SR) TAB PO (08:44)
[2017-03-10] MEDS: FAMOTIDINE 20 MG TAB PO (08:44)
[2017-03-10] MEDS: ASCORBIC ACID 500 MG TAB PO (08:44)
[2017-03-10] MEDS: DOCUSATE SODIUM 100 MG CAP PO (08:44)
[2017-03-10] MEDS: predniSONE 20 MG TAB PO (08:45)
[2017-03-10] MEDS: ZIPRASIDONE 20 MG CAP PO (08:45)
[2017-03-10] MEDS: HEPARIN 5,000 UNIT/0.5 ML VIAL SC (08:46)
[2017-03-10] MEDS: COLLAGENASE 30 GM TUBE TOP (08:54)
[2017-03-10] MEDS: INSULIN GLARGINE [LANtus] 3 ML PEN SC (08:54)
[2017-03-10] MEDS: SALMETEROL/FLUTICASONE 250/50 INHA INH (08:55)
[2017-03-10] MEDS: POLYETHYLENE GLYCOL 17 GM PACKET PO (09:15)
[2017-03-10] MEDS: AMLODIPINE 2.5 MG TAB PO (09:16)
[2017-03-10] MEDS: HYDROCODONE/APAP (5/325) TAB PO (10:01)
[2017-03-10 12:42] LABS: HSV 2 IGG ANTIBODY <0.90 index
[2017-03-10] MEDS: HEPARIN (100 UNITS/ML) 5 ML SYG CATHETER (13:56)
== END 2017-03-10 14:20 | disposition home health service (06) | DRG 871 ==
LOC: MS1 03-07 12:10 → E/R 09:07 → ICU 12:01
DX: A41.9 Sepsis, unspecified organism (principal); J18.9 Pneumonia, unspecified organism; J96.21 Acute and chronic respiratory failure with hypoxia; N17.9 Acute kidney failure, unspecified; B17.10 Acute hepatitis C without hepatic coma; J44.0 Chronic obstructive pulmonary disease with (acute) lower respiratory infection; J44.1 Chronic obstructive pulmonary disease with (acute) exacerbation; I69.954 Hemiplegia and hemiparesis following unspecified cerebrovascular disease affecting left non-dominant side; D63.8 Anemia in other chronic diseases classified elsewhere; E11.22 Type 2 diabetes mellitus with diabetic chronic kidney disease; I12.9 Hypertensive chronic kidney disease with stage 1 through stage 4 chronic kidney disease, or unspecified chronic kidney disease; R65.20 Severe sepsis without septic shock; N18.9 Chronic kidney disease, unspecified; E11.65 Type 2 diabetes mellitus with hyperglycemia; E78.5 Hyperlipidemia, unspecified; B00.9 Herpesviral infection, unspecified; E87.5 Hyperkalemia; F99 Mental disorder, not otherwise specified; Z90.12 Acquired absence of left breast and nipple; Z79.899 Other long term (current) drug therapy; G89.29 Other chronic pain; M54.9 Dorsalgia, unspecified; Z99.81 Dependence on supplemental oxygen; B96.1 Klebsiella pneumoniae [K. pneumoniae] as the cause of diseases classified elsewhere; E11.69 Type 2 diabetes mellitus with other specified complication; D50.9 Iron deficiency anemia, unspecified; R79.89 Other specified abnormal findings of blood chemistry; T46.4X5A Adverse effect of angiotensin-converting-enzyme inhibitors, initial encounter; Y92.239 Unspecified place in hospital as the place of occurrence of the external cause; Z87.891 Personal history of nicotine dependence; C50.912 Malignant neoplasm of unspecified site of left female breast; Z66 Do not resuscitate
CPT/HCPCS: 36415; 36600; 71010; 71045; 71250; 80048; 80053; 80061; 80202; 81001; 82728; 82803; 82962; 83036; 83540; 83605; 83735; 84100; 84439; 84443; 84481; 84484; 85025; 85610; 85651; 85730; 86692; 86803; 87040; 87081; 87086; 87340; 87400; 93005; 93306; 94640; 94644; 94664; 94668; 96365; 96372; 96375; 97110; 97116; 97162; 97530; 99291-25

== ENCOUNTER 2018-03-12 09:06 | Emergency (ER) | payer MEDICARE, OTHER, MEDICAID ==
[2018-03-12] MEDS: DIPHTH/TET/ACEL PERTUSS (ADULT) 0.5 ML VIAL IM* (09:32)
[2018-03-12] MEDS: HYDROCODONE/APAP (5/325) TAB PO (10:37)
[2018-03-12] MEDS: LIDOCAINE 1% (MDV) 20 ML INJ SC (11:31)
[2018-03-12] MEDS: KETOROLAC 15 MG INJ IM (12:29)
== END 2018-03-12 13:33 | disposition home or self-care (01) ==
LOC: E/R 09:06
DX: S42.001A Fracture of unspecified part of right clavicle, initial encounter for closed fracture (principal); R40.2142 Coma scale, eyes open, spontaneous, at arrival to emergency department; R40.2362 Coma scale, best motor response, obeys commands, at arrival to emergency department; F17.210 Nicotine dependence, cigarettes, uncomplicated; M25.511 Pain in right shoulder; W18.30XA Fall on same level, unspecified, initial encounter; Y92.9 Unspecified place or not applicable; Z23 Encounter for immunization; Z79.4 Long term (current) use of insulin
CPT/HCPCS: 12002; 71045; 73030-RT; 73590; 90471; 90715; 96372; 99284-25

== ENCOUNTER 2018-03-22 10:57 | Emergency (ER) | payer MEDICARE, OTHER, MEDICAID | END 2018-03-22 12:37 | disposition home or self-care (01) | LOC: FTE 10:57 | DX: Z48.02 Encounter for removal of sutures (principal); Z79.4 Long term (current) use of insulin; Z87.891 Personal history of nicotine dependence | CPT/HCPCS: 99281 ==

== ENCOUNTER 2018-08-02 09:01 | Inpatient (IN) | payer MEDICARE, OTHER, MEDICAID ==
[2018-08-02] MEDS: IPRATROPIUM (NEB) 0.5 MG/2.5 ML AMP INH (09:36)
[2018-08-02] MEDS: ALBUTEROL 0.083% (NEB) 2.5 MG/3 ML AMP HHN (09:36)
[2018-08-02 09:56] LABS: ADD MAN DIFF? NO
[2018-08-02] MEDS: METHYLPREDNISOLONE 125 MG INJ IV (10:05)
[2018-08-02] MEDS: CEFTRIAXONE 1 GM/50 ML (PMX) 50 ML IVPB (10:05)
[2018-08-02 10:06] LABS: WHITE BLOOD COUNT 6.7 10^3/ul (4.8-10.8)
[2018-08-02 10:06] LABS: BASOPHILS % 0.5 % (0.0-2.0); EOSINOPHILS % 0.6 % (0.0-7.0); HEMATOCRIT 41.5 % (37.0-47.0); HEMOGLOBIN 12.5 g/dl (12.0-16.0); LYMPHOCYTES # 0.9 10^3/ul (0.8-2.9); LYMPHOCYTES % 13.5 % (15.0-51.0); MEAN CORPUSCULAR HEMOGLOBIN 24.5 pg (29.0-33.0); MEAN CORPUSCULAR HGB CONC 30.1 g/dl (32.0-37.0); MEAN CORPUSCULAR VOLUME 81.2 fl (82.0-101.0); MEAN PLATELET VOLUME 10.5 fl (7.4-10.4); MONOCYTE # 0.6 10^3/ul (0.3-0.9); MONOCYTES % 8.6 % (0.0-11.0); NEUTROPHIL # 5.1 10^3/ul (1.6-7.5); NEUTROPHILS % 76.5 % (39.0-77.0); PLATELET COUNT 132 10^3/UL (140-415); RED BLOOD COUNT 5.11 10^6/ul (4.20-5.40); RED CELL DISTRIBUTION WIDTH 15.9 % (11.5-14.5)
[2018-08-02 10:37] LABS: ANION GAP 12 (5-13); BLOOD UREA NITROGEN 13 mg/dl (7-20); CALCIUM 9.1 mg/dl (8.4-10.2); CARBON DIOXIDE 22 mmol/L (21-31); CHLORIDE 108 mmol/L (97-110); CREATININE 0.71 mg/dl (0.44-1.00); Estimated GFR > 60 mL/min (>60); GLUCOSE 303 mg/dl (70-220); POTASSIUM 3.3 mmol/L (3.5-5.1); SODIUM 142 mmol/L (135-144)
[2018-08-02 10:51] LABS: TROPONIN-I < 0.012 ng/ml (0.000-0.120)
[2018-08-02] MEDS: KETOROLAC 30 MG INJ IV (11:08)
[2018-08-02] MEDS: AZITHROMYCIN 500MG/NS (PMX) 250 ML IV (11:08)
[2018-08-02] MEDS ORDERED: ONDANSETRON 4 MG INJ IV (11:30)
[2018-08-02] MEDS ORDERED: GLUCAGON 1 MG INJ IM (15:30)
[2018-08-02] MEDS ORDERED: DEXTROSE 50% 50 ML SYRINGE IV ×2 (15:30)
[2018-08-02] MEDS ORDERED: GLUCOSE GEL 15 GRAM TUBE BUCCAL (15:30)
[2018-08-02] MEDS ORDERED: GLUCOSE GEL 15 GRAM TUBE PO ×2 (15:30)
[2018-08-02] MEDS: HYDROmorphONE 2 MG TAB PO (15:36)
[2018-08-02 16:43] LABS: LACTIC ACID 5.6 mmol/L (0.5-2.0)
[2018-08-02] MEDS: ALBUTEROL/IPRATROPIUM (NEB) 3 ML AMP HHN ×2 (17:00→20:15)
[2018-08-02] MEDS: HYDROCODONE/APAP (5/325) TAB PO (18:09)
[2018-08-02] MEDS: INSULIN ASPART [NOVOLOG] 3 ML PEN SC ×3 (18:11→21:31)
[2018-08-02] MEDS: ATORVASTATIN 40 MG TAB PO (21:26)
[2018-08-02] MEDS: ZIPRASIDONE 20 MG CAP PO (21:26)
[2018-08-02] MEDS: ACETAMINOPHEN 325 MG TAB PO (21:26)
[2018-08-02] MEDS: INSULIN GLARGINE [LANTus] (100 UNITS/ML) SYG SC (21:31)
[2018-08-02] MEDS: ROPINIROLE 0.25 MG TAB PO (23:27)
[2018-08-03] MEDS: ALBUTEROL/IPRATROPIUM (NEB) 3 ML AMP HHN ×6 (01:40→20:59)
[2018-08-03] MEDS: HYDROCODONE/APAP (5/325) TAB PO ×4 (03:52→23:49)
[2018-08-03 06:23] LABS: ADD MAN DIFF? NO
[2018-08-03 06:33] LABS: WHITE BLOOD COUNT 8.4 10^3/ul (4.8-10.8)
[2018-08-03 06:33] LABS: BASOPHILS % 0.1 % (0.0-2.0); EOSINOPHILS % 0.1 % (0.0-7.0); HEMATOCRIT 38.4 % (37.0-47.0); LYMPHOCYTES # 1.1 10^3/ul (0.8-2.9); LYMPHOCYTES % 13.1 % (15.0-51.0); MEAN CORPUSCULAR HEMOGLOBIN 24.7 pg (29.0-33.0); MEAN CORPUSCULAR HGB CONC 31.3 g/dl (32.0-37.0); MEAN CORPUSCULAR VOLUME 79.2 fl (82.0-101.0); MEAN PLATELET VOLUME 10.6 fl (7.4-10.4); MONOCYTE # 0.8 10^3/ul (0.3-0.9); MONOCYTES % 9.5 % (0.0-11.0); NEUTROPHIL # 6.4 10^3/ul (1.6-7.5); NEUTROPHILS % 76.4 % (39.0-77.0); PLATELET COUNT 175 10^3/UL (140-415); RED BLOOD COUNT 4.85 10^6/ul (4.20-5.40); RED CELL DISTRIBUTION WIDTH 15.8 % (11.5-14.5)
[2018-08-03 06:46] LABS: LACTIC ACID 1.1 mmol/L (0.5-2.0)
[2018-08-03 07:02] LABS: ALANINE AMINOTRANSFERASE 25 IU/L (13-69); ALBUMIN 3.9 g/dl (3.3-4.9); ALBUMIN/GLOBULIN RATIO 1.39; ALKALINE PHOSPHATASE 97 IU/L (42-121); ANION GAP 9 (5-13); ASPARTATE AMINO TRANSFERASE 14 IU/L (15-46); BILIRUBIN,INDIRECT 0.3 mg/dl (0-1.1); BILIRUBIN,TOTAL 0.3 mg/dl (0.2-1.3); BLOOD UREA NITROGEN 14 mg/dl (7-20); CALCIUM 9.9 mg/dl (8.4-10.2); CARBON DIOXIDE 25 mmol/L (21-31); CHLORIDE 105 mmol/L (97-110); CREATININE 0.74 mg/dl (0.44-1.00); Estimated GFR > 60 mL/min (>60); GLUCOSE 231 mg/dl (70-220); POTASSIUM 4.3 mmol/L (3.5-5.1); SODIUM 139 mmol/L (135-144); TOTAL PROTEIN 6.7 g/dl (6.1-8.1)
[2018-08-03 07:35] LABS: HEMOGLOBIN A1C 8.6 % (0-5.9)
[2018-08-03] MEDS: ENOXAPARIN 30 MG/0.3 ML SYG SC (08:40)
[2018-08-03] MEDS: INSULIN ASPART [NOVOLOG] 3 ML PEN SC ×7 (08:41→21:18)
[2018-08-03] MEDS: ZIPRASIDONE 20 MG CAP PO ×2 (08:42→21:10)
[2018-08-03] MEDS: predniSONE 20 MG TAB PO (08:42)
[2018-08-03] MEDS: AMLODIPINE 5 MG TAB PO (08:43)
[2018-08-03] MEDS: AZITHROMYCIN 250 MG TAB PO (12:48)
[2018-08-03] MEDS: CEFTRIAXONE 1 GM/50 ML (PMX) 50 ML IVPB (12:49)
[2018-08-03] MEDS: KETOROLAC 15 MG INJ IV ×2 (13:14→21:14)
[2018-08-03] MEDS ORDERED: ACETAMINOPHEN 325 MG TAB PO (13:30)
[2018-08-03 17:07] LABS: PROCALCITONIN 0.07 ng/mL (0.00-0.10)
[2018-08-03] MEDS: ROPINIROLE 0.25 MG TAB PO (21:10)
[2018-08-03] MEDS: ATORVASTATIN 40 MG TAB PO (21:14)
[2018-08-03] MEDS: INSULIN GLARGINE [LANTus] (100 UNITS/ML) SYG SC (21:17)
[2018-08-04] MEDS: traZODone 50 MG TAB PO (01:00)
[2018-08-04] MEDS: ALBUTEROL/IPRATROPIUM (NEB) 3 ML AMP HHN ×7 (01:06→20:49)
[2018-08-04] MEDS: KETOROLAC 15 MG INJ IV ×3 (08:31→21:39)
[2018-08-04] MEDS: predniSONE 20 MG TAB PO (08:31)
[2018-08-04] MEDS: AZITHROMYCIN 250 MG TAB PO (08:31)
[2018-08-04] MEDS: ZIPRASIDONE 20 MG CAP PO ×2 (08:31→21:25)
[2018-08-04] MEDS: AMLODIPINE 5 MG TAB PO (08:31)
[2018-08-04] MEDS: ENOXAPARIN 30 MG/0.3 ML SYG SC (08:33)
[2018-08-04] MEDS: INSULIN ASPART [NOVOLOG] 3 ML PEN SC ×7 (08:35→21:33)
[2018-08-04] MEDS: HYDROCODONE/APAP (5/325) TAB PO ×3 (09:38→23:59)
[2018-08-04] MEDS: CEFTRIAXONE 1 GM/50 ML (PMX) 50 ML IVPB (11:22)
[2018-08-04] MEDS: HYDROmorphONE 1 MG/ML SYG IV (11:22)
[2018-08-04] MEDS: ROPINIROLE 0.25 MG TAB PO (21:26)
[2018-08-04] MEDS: ATORVASTATIN 40 MG TAB PO (21:26)
[2018-08-04] MEDS: INSULIN GLARGINE [LANTus] (100 UNITS/ML) SYG SC (21:31)
[2018-08-04] MEDS: HYDROmorphONE 0.5 MG/0.5 ML SYG IV (21:34)
[2018-08-05] MEDS: ALBUTEROL/IPRATROPIUM (NEB) 3 ML AMP HHN ×3 (01:35→08:07)
[2018-08-05] MEDS: HYDROmorphONE 0.5 MG/0.5 ML SYG IV ×2 (01:50→08:38)
[2018-08-05] MEDS: KETOROLAC 15 MG INJ IV ×2 (03:38→09:49)
[2018-08-05] MEDS: predniSONE 20 MG TAB PO (08:41)
[2018-08-05] MEDS: ZIPRASIDONE 20 MG CAP PO (08:41)
[2018-08-05] MEDS: AZITHROMYCIN 250 MG TAB PO (08:41)
[2018-08-05] MEDS: AMLODIPINE 5 MG TAB PO (08:41)
[2018-08-05] MEDS: ENOXAPARIN 30 MG/0.3 ML SYG SC (08:42)
[2018-08-05] MEDS: INSULIN ASPART [NOVOLOG] 3 ML PEN SC ×4 (08:43→12:00)
[2018-08-05] MEDS: HYDROCODONE/APAP (5/325) TAB PO (12:02)
[2018-08-05] MEDS: CEFTRIAXONE 1 GM/50 ML (PMX) 50 ML IVPB (12:03)
== END 2018-08-05 14:18 | disposition home or self-care (01) | DRG 190 ==
LOC: E/R 09:01 → PP2 11:09
PROC: 3E0F7GC Introduction of Other Therapeutic Substance into Respiratory Tract, Via Natural or Artificial Opening (ICD-10-PCS; principal; 2018-08-02)
DX: J44.1 Chronic obstructive pulmonary disease with (acute) exacerbation (principal); J96.01 Acute respiratory failure with hypoxia; J18.9 Pneumonia, unspecified organism; I69.354 Hemiplegia and hemiparesis following cerebral infarction affecting left non-dominant side; F17.210 Nicotine dependence, cigarettes, uncomplicated; E11.9 Type 2 diabetes mellitus without complications; F20.9 Schizophrenia, unspecified; Z85.3 Personal history of malignant neoplasm of breast; Z79.4 Long term (current) use of insulin
CPT/HCPCS: 36415; 71045; 80048; 80053; 82962; 83036; 83605; 84145; 84484; 85025; 87040-91; 93005; 94640; 94664; 96365; 96375; 97116; 97162; 97530; 99285-25